=== PATIENT | female | born 1950 | race Caucasian/White ===

== ENCOUNTER → 2016-10-10 | Outpatient (CLI) | payer MEDICARE, BC ==
[~2016-10-10] MED LIST: ASP PO; UNABLE; high cholesterol; hormone replacement; muscle relaxant; sleeping pill
== END ==
LOC: MC.RAD 13:36
DX: Z12.31 Encounter for screening mammogram for malignant neoplasm of breast (principal); N63 Unspecified lump in breast; R92.1 Mammographic calcification found on diagnostic imaging of breast

== ENCOUNTER → 2016-11-28 | Outpatient (CLI) | payer MEDICARE, BC | LOC: COL.RAD 07:30 | DX: M19.071 Primary osteoarthritis, right ankle and foot (principal) | CPT/HCPCS: A9503 ==

== ENCOUNTER → 2017-11-26 | Outpatient (CLI) | payer MEDICARE, BC | LOC: MC.RAD 09:17 | DX: Z12.31 Encounter for screening mammogram for malignant neoplasm of breast (principal); Z98.890 Other specified postprocedural states; Z98.82 Breast implant status ==

== ENCOUNTER → 2018-12-14 | Outpatient (CLI) | payer MEDICARE, BC | LOC: MC.RAD 10:00 | DX: Z12.31 Encounter for screening mammogram for malignant neoplasm of breast (principal); Z98.82 Breast implant status ==

== ENCOUNTER 2019-05-07 14:07 | Emergency (ER) | payer MEDICARE, BC ==
[~2019-05-07] VITALS: Ht 160 cm; Wt 54.5 kg
[2019-05-07 14:26] VITALS: TEMP 97.6
[2019-05-07 15:09] LABS: COLLECTION METHOD CLEAN CATCH
[2019-05-07 15:27] LABS: MUCOUS Present /lpf; PH 7 (5-8); SQUAMOUS EPITHELIAL 0-2 /hpf; URINE APPEARANCE Clear; URINE BACTERIA Rare /hpf; URINE BILIRUBIN Negative (NEGATIVE); URINE BLOOD Negative (NEGATIVE); URINE COLOR Yellow; URINE GLUCOSE Negative (NEGATIVE); URINE KETONE Negative (NEGATIVE); URINE LEUKOCYTE ESTERASE Negative (NEGATIVE); URINE NITRATE Negative (NEGATIVE); URINE PROTEIN(semi-quant) Negative (NEGATIVE); URINE UROBILINOGEN Negative (NEGATIVE)
[2019-05-07 16:10] LABS: TRICYCLIC ANTIDEPRESS URINE POSITIVE
[2019-05-07 16:11] LABS: ACETAMINOPHEN < 10 ug/mL (10-30); ALANINE AMINOTRANSFERASE 25 U/L (9-52); ALBUMIN 4.6 gm/dL (3.5-5.0); ALCOHOL(ethanol),MEDICAL < 10 mg/dL; ALKALINE PHOSPHATASE 84 U/L (50-136); ANION GAP 10 mmol/L (7-16); AST,SGOT 36 U/L (15-37); BILIRUBIN,TOTAL 0.9 mg/dL (0.0-1.0); BLOOD UREA NITROGEN 17 mg/dL (7-17); CALCIUM 9.9 mg/dL (8.4-10.2); CARBON DIOXIDE 27 mmol/L (22-30); CHLORIDE 102 mmol/L (98-107); CREATININE, serum 0.72 (0.52-1.25); GLUCOSE 103 mg/dL (74-106); POTASSIUM 4.3 mmol/L (3.4-5.0); SALICYLATE 2.3 mg/dL; SODIUM 139 mmol/L (137-145); TOTAL PROTEIN 7.8 gm/dL (6.4-8.2)
[2019-05-07 16:17] LABS: BASO % 0.5 % (0.0-2.0); EOS # 0.1 (0.0-0.7); EOS % 1.6 % (0-4.0); GRAN # 4.4 (1.4-6.5); GRAN % 69.2 % (42.2-75.2); HEMATOCRIT 44.8 % (37.0-47.0); HEMOGLOBIN 14.6 g/dl (12.5-16.0); LYMPH # 1.5 (1.2-3.4); LYMPH % 24.1 % (20.0-51.0); MEAN CELL VOLUME 92 fl (80.0-100.0); MEAN CORPUSCULAR HEMOGLOBIN 30 pg (27.0-31.0); MEAN CORPUSCULAR HGB CONC 33 g/dl (33.0-37.0); MONO # 0.3 (0.1-0.6); MONO % 4.3 % (1.7-9.3); PLATELET COUNT 278 K/mm3 (130-400); RED BLOOD COUNT 4.88 M/mm3 (4.10-5.30); REDCELL DISTRIBUTION WIDTH-CV 12.9 % (11.5-14.5)
[2019-05-07 16:35] VITALS: BP 138/78; PULSE 83
== END 2019-05-07 16:35 | disposition home or self-care (01) ==
LOC: COL.ER 14:07
PROVIDERS: Emergency Medicine
DX: F43.20 Adjustment disorder, unspecified (principal)

== ENCOUNTER 2019-05-09 18:09 | Emergency (ER) | payer MEDICARE, BC ==
[~2019-05-09] VITALS: Ht 162.6 cm; Wt 56.8 kg
[2019-05-09 18:27] VITALS: TEMP 97.8
[2019-05-09] MEDS ORDERED: ZOFRAN 4MG T4 MG/TAB PO (18:36)
[2019-05-09] MEDS ORDERED: ATIVAN 0.50.5 MG/TAB PO (18:37)
[2019-05-09] MEDS ORDERED: CIPRO 500MG TA500 MG PO (18:37)
[2019-05-09] MEDS ORDERED: ESTRACE 1MG1 MG/TAB PO (18:38)
[2019-05-09] MEDS ORDERED: PROTONIX 40MG T40 MG PO (18:39)
[2019-05-09] MEDS ORDERED: MOBIC15 MG PO (18:39)
[2019-05-09] MEDS ORDERED: ZOCOR 40MG40 MG PO (18:42)
[2019-05-09] MEDS ORDERED: PAMELOR50 MG PO (18:43)
[2019-05-09] MEDS ORDERED: CORGARD40 MG PO (18:44)
[2019-05-09 19:00] LABS: BASO % 0.2 % (0.0-2.0); EOS % 0.1 % (0-4.0); GRAN # 8.2 (1.4-6.5); GRAN % 81.8 % (42.2-75.2); HEMATOCRIT 40.9 % (37.0-47.0); HEMOGLOBIN 13.8 g/dl (12.5-16.0); LYMPH # 1.3 (1.2-3.4); LYMPH % 12.6 % (20.0-51.0); MEAN CELL VOLUME 90 fl (80.0-100.0); MEAN CORPUSCULAR HEMOGLOBIN 30 pg (27.0-31.0); MEAN CORPUSCULAR HGB CONC 34 g/dl (33.0-37.0); MEAN PLATELET VOLUME 10.7 fl (7.4-10.4); MONO # 0.5 (0.1-0.6); PLATELET COUNT 297 K/mm3 (130-400); RED BLOOD COUNT 4.54 M/mm3 (4.10-5.30); REDCELL DISTRIBUTION WIDTH-CV 13.2 % (11.5-14.5)
[2019-05-09 19:21] LABS: ALBUMIN 4.5 gm/dL (3.5-5.0); BILIRUBIN,TOTAL 0.8 mg/dL (0.0-1.0); C-REACTIVE PROTEIN 0.6 mg/dL (0.0-0.9); CALCIUM 9.8 mg/dL (8.4-10.2); CREATININE, serum 0.69 (0.52-1.25); POTASSIUM 3.8 mmol/L (3.4-5.0); TOTAL PROTEIN 7.7 gm/dL (6.4-8.2)
[2019-05-09 21:56] LABS: COLLECTION METHOD CLEAN CATCH
[2019-05-09 22:02] LABS: MUCOUS Present /lpf; PH 6 (5-8); SQUAMOUS EPITHELIAL 0-2 /hpf; URINE APPEARANCE Clear; URINE BACTERIA None Seen /hpf; URINE BILIRUBIN Negative (NEGATIVE); URINE BLOOD 1+ (NEGATIVE); URINE COLOR Straw; URINE GLUCOSE Negative (NEGATIVE); URINE KETONE 1+ (NEGATIVE); URINE LEUKOCYTE ESTERASE Negative (NEGATIVE); URINE NITRATE Negative (NEGATIVE); URINE PROTEIN(semi-quant) Negative (NEGATIVE); URINE UROBILINOGEN Negative (NEGATIVE)
[2019-05-09 22:07] VITALS: BP 156/85; PULSE 85
[2019-05-10] MEDS ORDERED: NORCO 325 MG-51 TAB PO (10:25)
[2019-05-10] MEDS ORDERED: FLEXERIL 1010 MG/TAB PO (10:27)
== END 2019-05-09 22:07 | disposition home or self-care (01) ==
LOC: COL.ER 18:09
PROVIDERS: Emergency Medicine
DX: K59.00 Constipation, unspecified (principal); R11.10 Vomiting, unspecified; M54.9 Dorsalgia, unspecified; F41.9 Anxiety disorder, unspecified; E78.5 Hyperlipidemia, unspecified; Z90.710 Acquired absence of both cervix and uterus
CPT/HCPCS: J1885; J2270; J2405; J7030; Q9967

== ENCOUNTER 2019-05-10 09:18 | Inpatient (IN) | payer MEDICARE, BC ==
[~2019-05-10] VITALS: Ht 160 cm; Wt 59.3 kg
[~2019-05-10 09:18] MED LIST changes: +ATIVAN 0.50.5 MG/TAB PO; +CIPRO 500MG TA500 MG PO; +CORGARD40 MG PO; +ESTRACE 1MG1 MG/TAB PO; +MOBIC15 MG PO; +PAMELOR50 MG PO; +PROTONIX 40MG T40 MG PO; +ZOCOR 40MG40 MG PO; +ZOFRAN 4MG T4 MG/TAB PO
[2019-05-10 09:57] VITALS: BP 128/60; PULSE 62; TEMP 97.5
[2019-05-10] MEDS ORDERED: NORCO 325 MG-51 TAB PO (10:25)
[2019-05-10] MEDS ORDERED: FLEXERIL 1010 MG/TAB PO (10:27)
[2019-05-10 11:42] VITALS: BP 137/65; PULSE 64; TEMP 97.7
[2019-05-10 15:34] VITALS: BP 124/76; PULSE 77; TEMP 97.7
[2019-05-11 01:02] VITALS: BP 123/68; PULSE 86; TEMP 98.2
[2019-05-11 06:30] LABS: BASO % 0.1 % (0.0-2.0); GRAN # 5.8 (1.4-6.5); GRAN % 79.4 % (42.2-75.2); LYMPH # 1.1 (1.2-3.4); LYMPH % 14.5 % (20.0-51.0); MEAN CELL VOLUME 92 fl (80.0-100.0); MEAN CORPUSCULAR HGB CONC 33 g/dl (33.0-37.0); MONO # 0.4 (0.1-0.6); MONO % 5.6 % (1.7-9.3); PLATELET COUNT 265 K/mm3 (130-400); RED BLOOD COUNT 3.85 M/mm3 (4.10-5.30); REDCELL DISTRIBUTION WIDTH-CV 13.3 % (11.5-14.5)
[2019-05-11 06:41] LABS: HEMOGLOBIN 11.7 g/dl (12.5-16.0); MEAN CORPUSCULAR HEMOGLOBIN 30 pg (27.0-31.0)
[2019-05-11 06:43] LABS: HEMATOCRIT 35.3 % (37.0-47.0)
[2019-05-11 06:50] LABS: CALCIUM 8.5 mg/dL (8.4-10.2); CREATININE, serum 0.52 (0.52-1.25); POTASSIUM 3.7 mmol/L (3.4-5.0)
[2019-05-11 08:11] VITALS: BP 97/58; PULSE 91; TEMP 98.2
[2019-05-11 12:16] VITALS: BP 119/55; PULSE 95; TEMP 98.1
[2019-05-11 15:44] VITALS: BP 111/61; PULSE 79; TEMP 98.2
[2019-05-11 23:27] VITALS: BP 125/90; PULSE 69; TEMP 98.2
[2019-05-12 00:49] VITALS: BP 115/52; PULSE 72; TEMP 98.3
[2019-05-12 05:01] VITALS: BP 139/63; PULSE 62; TEMP 98.4
[2019-05-12 05:15] VITALS: BP 125/64; PULSE 77; TEMP 98
[2019-05-12 08:11] VITALS: BP 104/55; PULSE 91; TEMP 97.2
[2019-05-12 11:03] VITALS: BP 104/44; PULSE 85; TEMP 97.9
[2019-05-12] MEDS ORDERED: FLEXERIL 1010 MG/TAB PO (11:50)
[2019-05-12] MEDS ORDERED: LIDODERM 5% PATC1 EA TP (11:51)
[2019-05-12] MEDS ORDERED: NORCO 325 MG-51 TAB PO (11:54)
[2019-05-12] MEDS ORDERED: ATIVAN 0.50.5 MG/TAB PO (11:54)
== END 2019-05-12 12:30 | disposition home or self-care (01) | DRG 552 ==
LOC: MEDICAL 09:18 → SURG 09:19
PROVIDERS: Physician Assistant; ADMIT Internal Medicine
DX: M47.896 Other spondylosis, lumbar region (principal); M48.061 Spinal stenosis, lumbar region without neurogenic claudication; E86.0 Dehydration; F32.9 Major depressive disorder, single episode, unspecified; F41.9 Anxiety disorder, unspecified; I10 Essential (primary) hypertension; E78.5 Hyperlipidemia, unspecified; Z90.710 Acquired absence of both cervix and uterus
CPT/HCPCS: 99222-AI; 99232-AI; 99239; J1650; J2060; J7030; J7512

== ENCOUNTER → 2019-05-12 | Outpatient (CLI) | payer MEDICARE, BC ==
[~2019-05-12] VITALS: Ht 160 cm; Wt 62.3 kg
[~2019-05-12] MED LIST changes: +FLEXERIL 1010 MG/TAB PO; +LIDODERM 5% PATC1 EA TP; +NORCO 325 MG-51 TAB PO
[2019-05-12 13:59] VITALS: BP 141/98; PULSE 92
[2019-05-12 14:34] VITALS: BP 141/85; PULSE 86
== END ==
LOC: COL.RAD 12:58
DX: M51.16 Intervertebral disc disorders with radiculopathy, lumbar region (principal)
CPT/HCPCS: J3301

== ENCOUNTER → 2019-12-16 | Outpatient (CLI) | payer MEDICARE, BC | LOC: MC.RAD 11:16 | DX: Z12.31 Encounter for screening mammogram for malignant neoplasm of breast (principal) ==

== ENCOUNTER → 2020-01-30 | Outpatient (CLI) | payer MEDICARE, BC | LOC: ZCOL.LAB 13:23 | DX: U07.1 COVID-19 (principal) ==

== ENCOUNTER → 2020-12-21 | Outpatient (CLI) | payer MEDICARE, BC | LOC: MC.RAD 10:45 | DX: Z12.31 Encounter for screening mammogram for malignant neoplasm of breast (principal) ==

== ENCOUNTER → 2021-03-05 | Outpatient (CLI) | payer MEDICARE, BC | END | disposition still patient (30) | LOC: COL.LAB 08:45 | DX: Z01.89 Encounter for other specified special examinations (principal) ==

== ENCOUNTER → 2022-01-09 | Outpatient (CLI) | payer MEDICARE, BC | LOC: MC.RAD 12-23 13:15 | DX: Z12.31 Encounter for screening mammogram for malignant neoplasm of breast (principal) ==

== ENCOUNTER → 2023-01-23 | Outpatient (CLI) | payer MEDICARE, BC | LOC: MC.RAD 14:02 | DX: Z12.31 Encounter for screening mammogram for malignant neoplasm of breast (principal) ==

== ENCOUNTER 2023-06-03 09:03 | Day surgery (SDC) | payer MEDICARE, BC ==
[~2023-06-03] VITALS: Ht 157.5 cm; Wt 56.5 kg
[~2023-06-03 09:03] MED LIST changes: +ESTRACE0.5 MG PO; +LR 1,000 ML IV SCH; +MELATONIN5 M1 SL; +Ondansetron 4 MG/2 ML VIAL IV PRN; +PROBIOTIC-MAJOR PO; +TYLENOL 8 HR PO; +ZOLOFT 100MG100 MG PO; +[UNRECOGNIZED DRUG - OTHER] PO
[2023-06-03] MEDS ORDERED: PEPCID40 MG PO (09:41)
[2023-06-03] MEDS ORDERED: TYLENOL 8 HR PO (09:42)
[2023-06-03] MEDS ORDERED: ATIVAN 0.50.5 MG/TAB PO (09:50)
[2023-06-03] MEDS ORDERED: fentaNYL 50 MCG/ML 2 ML VIAL ONE (10:11)
[2023-06-03] MEDS ORDERED: Lidocaine PF 2% (20 MG/ML) 5 ML VIAL ONE (10:11)
[2023-06-03 10:43] VITALS: BP 136/77; PULSE 57; TEMP 97.4
--- NOTE | 2023-06-03 10:43 | NUR ---
The patient arrived back to [facility] from the endoscopy suite at this time. The patient ambulated from the cart to the recliner in her room with the stand by assistance of two nurses and appeared to tolerate the activity well. Post procedure vital signs were started at this time. The patient agrees to try some cranberry juice and a muffin. The patient's family is at her bedside. Warm blanket provided. Call light is within reach. Dr. Mcghee is coming in to speak with the patient and her family regarding the findinds of the procedure.
[2023-06-03 10:58] VITALS: BP 147/75; PULSE 64
--- NOTE | 2023-06-03 10:58 | NUR ---
The patient appears to be toleraitng the food and drink well and denies wanting anything further to eat or drink at this time.
[2023-06-03 11:02] VITALS: BP 120/72; PULSE 57; TEMP 97.7
--- NOTE | 2023-06-03 11:28 | NUR ---
1103 Discharge instrucitons were reviewed with the patient and her family at this time. They both verbalized understanding and have no questions for the nurse at this time. The patient's IV to her right anecubital was removed and a pressure dressing was applied to the site. The nurse instructed the patient to get dressed and notify the staff when she is ready to be escorted out. [id number] The patient was escorted via wheelchair to a private vehicle by ALFONZO Leiva. The patient's belongings and discharge paperwork were sent with her. The patient's family is present to drive her home.
== END 2023-06-03 11:16 | disposition home or self-care (01) ==
LOC: SDCO 09:03
DX: K29.70 Gastritis, unspecified, without bleeding (principal); K25.9 Gastric ulcer, unspecified as acute or chronic, without hemorrhage or perforation; K20.80 Other esophagitis without bleeding; K31.5 Obstruction of duodenum; K31.89 Other diseases of stomach and duodenum; Z87.11 Personal history of peptic ulcer disease
CPT/HCPCS: J2704; J3010; J7120

== ENCOUNTER → 2024-01-25 | Outpatient (CLI) | payer MEDICARE ==
[~2024-01-25] MED LIST changes: -LR 1,000 ML IV SCH; -Ondansetron 4 MG/2 ML VIAL IV PRN; +PEPCID40 MG PO
== END ==
LOC: MC.RAD 08:53
DX: Z12.31 Encounter for screening mammogram for malignant neoplasm of breast (principal)